=== PATIENT | male | born 1940 | race African-American/Black ===

== ENCOUNTER 2019-09-10 07:56 | Emergency (ER) | payer OTHER ==
[~2019-09-10] VITALS: Ht 162.6 cm; Wt 64.9 kg
[2019-09-10 08:09] VITALS: BP_SYST 153
[2019-09-10] MEDS ORDERED: ONDANSETRON HCL 4 MG/2 ML VIAL IVP ONE (08:30)
[2019-09-10] MEDS ORDERED: FAMOTIDINE PF 20 MG/2 ML VIAL IVP ONE (08:30)
[2019-09-10] MEDS ORDERED: MORPHINE 4 MG/ML INJ. SYRINGE IVP ONE (08:30)
--- NOTE | 2019-09-10 08:30 | NUR ---
Placed in room 2 . Placed on water superintendent, blood pressure machine and pulse oximeter. To gown for exam. Side rails up. Assumed care.
[2019-09-10 08:32] LABS: BILIRUBIN,URINE NEGATIVE (NEGATIVE); BLOOD, URINE NEGATIVE (NEGATIVE); CLARITY/URINE CLEAR (CLEAR); COLOR,URINE YELLOW (YELLOW); GLUCOSE,URINE 1+ (NEGATIVE); KETONES,URINE NEGATIVE (NEGATIVE); LEUKOCYTE ESTERASE ,URINE NEGATIVE (NEGATIVE); NITRITE, URINE NEGATIVE (NEGATIVE); PH,URINE 7.5 (5.0-8.0); PROTEIN URINE NEGATIVE (NEGATIVE); UROBILINOGEN,URINE 0.2 (0.2-1.0)
--- NOTE | 2019-09-10 08:35 | NUR ---
Patient arrived AAOx4, and ambulatory with steady gait. Patient c/c of lower abdominal pain and flank pain since last night. Patient reports that his pain is dull and achy, 9/10 rated, nausea with no diarrhea or vomiting. Patient states nothing alleviates his pain or makes it worse. Patient states history of constipation, but has increased his water intake to help "flush things through." Patietn states no pain with urination or blood. Patient states no history of kidney stones. Will continue to follow up and monitor.
--- NOTE | 2019-09-10 08:55 | NUR ---
# 20 gauge angiocath placed to LAC. Use of asceptic technique. Opsite placed over site. Blood return noted. Blood for lab drawn from site. Flushed with 10 cc of normal saline. No evidence of infiltration noted. Patient tolerated well.
[2019-09-10 09:15] LABS: BASOPHILS % (AUTO) 0.3 % (0.0-2.0); EOSINOPHILS # (AUTO) 0.1 K/uL (0.0-0.4); EOSINOPHILS % (AUTO) 0.8 % (0.0-4.0); HEMATOCRIT 37.9 % (36-54); HEMOGLOBIN 12.9 g/dL (14.0-18.0); LYMPHOCYTES % (AUTO) 12.9 % (20.5-51.5); MEAN CORPUSCULAR HEMOGLOBIN 33 pg (27-31); MEAN CORPUSCULAR HGB CONC 34 % (32-36); MEAN CORPUSCULAR VOLUME 97 fL (79.0-98.0); MONOCYTES # (AUTO) 0.4 K/uL (0.0-1.0); MONOCYTES % (AUTO) 5.4 % (1.7-9.3); NEUTROPHILS # (AUTO) 6.2 K/uL (1.8-7.7); NEUTROPHILS % (AUTO) 80.6 % (40.0-70.0); PLATELET COUNT (AUTO) 207 K/uL (130-430); RED BLOOD CELL COUNT(AUTO) 3.92 MIL/uL (4.2-6.2); RED CELL DISTRIBUTION WIDTH 13.6 % (9.0-15.0); WHITE BLOOD COUNT (AUTO) 7.7 K/uL (4.8-10.8)
[2019-09-10 09:47] LABS: ANION GAP 6 (5-15); CALCIUM 9.3 mg/dL (8.4-11.0); CHLORIDE 105 mmol/L (98-107); CREATININE 0.87 mg/dL (0.55-1.30); GLUCOSE 173 mg/dL (70-99); POTASSIUM 3.9 mmol/L (3.5-5.1); SODIUM SERUM 139 mmol/L (136-145); UREA NITROGEN, BLOOD 9 mg/dL (8-21)
[2019-09-10 09:52] LABS: ALANINE AMINOTRANSFERASE 22 U/L (12-78); ALBUMIN 3.7 g/dL (3.4-4.8); ASPARTATE AMINOTRANSFERASE 20 U/L (10-37); TOTAL BILIRUBIN 0.6 mg/dL (0.0-1.0)
[2019-09-10] MEDS ORDERED: TAMSULOSIN HCL 0.4 MG CAP PO ONE (10:30)
--- NOTE | 2019-09-10 10:35 | NUR ---
# 16 FR Pearce catheter with use of sterile technique. Immediate return of 625 cc pale clear yellow urine noted. Bedside drainage bag placed below level of bladder. Urine sample collected and sent to lab. Pt tolerated procedure well. Placed related to urinary retention and bladder distention. Patient notes immediate relief of pain.
--- NOTE | 2019-09-10 13:18 | NUR ---
Patient concerned regarding blood presence in urine. Dr. Solano at bedside to discuss. Okay to hang additional 1L of normal saline and change leg bag to see clarity.
[2019-09-10 13:37] VITALS: BP_SYST 141
--- NOTE | 2019-09-10 13:37 | NUR ---
Patient given written and verbal discharge instructions and verbalizes understanding. ER MD discussed with patient the results and treatment provided. Patient in stable condition. ID arm band removed. IV catheter removed intact and dressing applied, no active bleeding. Rx of Flomax given. Patient educated on pain management and to follow up with PMD. Pain Scale 0/10. Opportunity for questions provided and answered. Medication side effect fact sheet provided. Patient receieved additional 1L of normal saline as ordered by Dr. Solano. Patient educated on emptying of leg bag for catheter and importance of cleaning area with soap and water, maintaining hygiene for reduced risk of infection. Patient from [place] and encouraged to follow up with PMD and ask for referrel to urologist.
== END 2019-09-10 13:37 | disposition home or self-care (01) ==
LOC: SED 07:56
DX: N32.89 Other specified disorders of bladder (principal); N13.30 Unspecified hydronephrosis; R33.9 Retention of urine, unspecified; E11.9 Type 2 diabetes mellitus without complications; I10 Essential (primary) hypertension; E78.00 Pure hypercholesterolemia, unspecified; Z46.6 Encounter for fitting and adjustment of urinary device
CPT/HCPCS: 36415; 80053; 81003; 85025; 96374; 96375; 99284

== ENCOUNTER 2019-09-12 11:26 | Emergency (ER) | payer OTHER ==
[~2019-09-12] VITALS: Ht 167.6 cm; Wt 68.0 kg
[2019-09-12 11:49] VITALS: BP_SYST 150
--- NOTE | 2019-09-12 11:54 | NUR ---
Patient triaged and placed in waiting room. VSS and patient appears in no acute distress at this time. Accompanied by self, awaiting available bed, and MD notified of need for MSE.
--- NOTE | 2019-09-12 12:15 | NUR ---
Patient to ER bed 02 to gown for evaluation. Side rails up.
--- NOTE | 2019-09-12 12:21 | NUR ---
Patient is awake, alert, and oriented x4. Patient reports he had a chen catheter inserted on Suday, bloody urine was noted in bag and he reports being told that it would clear up. Patient complains that it has not cleared up. He presents with bloody urine, chen catheter is intact. Patient is dull lower abdominal pain 3/10 made worse on movement.
--- NOTE | 2019-09-12 12:30 | NUR ---
ER Dr. Cheney at bedside examining patient.
--- NOTE | 2019-09-12 12:48 | NUR ---
Pt returned from radiology in stable condition
[2019-09-12 12:50] LABS: BASOPHILS % (AUTO) 0.5 % (0.0-2.0); EOSINOPHILS # (AUTO) 0.1 K/uL (0.0-0.4); EOSINOPHILS % (AUTO) 1.8 % (0.0-4.0); HEMATOCRIT 37.6 % (36-54); HEMOGLOBIN 12.8 g/dL (14.0-18.0); MEAN CORPUSCULAR HEMOGLOBIN 33 pg (27-31); MEAN CORPUSCULAR HGB CONC 34 % (32-36); MEAN CORPUSCULAR VOLUME 97 fL (79.0-98.0); MONOCYTES # (AUTO) 0.6 K/uL (0.0-1.0); NEUTROPHILS # (AUTO) 3.8 K/uL (1.8-7.7); NEUTROPHILS % (AUTO) 58.7 % (40.0-70.0); PLATELET COUNT (AUTO) 217 K/uL (130-430); RED BLOOD CELL COUNT(AUTO) 3.87 MIL/uL (4.2-6.2); RED CELL DISTRIBUTION WIDTH 13.6 % (9.0-15.0); WHITE BLOOD COUNT (AUTO) 6.6 K/uL (4.8-10.8)
[2019-09-12 13:02] LABS: ANION GAP 4 (5-15); CHLORIDE 103 mmol/L (98-107); CREATININE 0.96 mg/dL (0.55-1.30); GLUCOSE 192 mg/dL (70-99); SODIUM SERUM 136 mmol/L (136-145); UREA NITROGEN, BLOOD 12 mg/dL (8-21)
[2019-09-12 13:07] LABS: ALANINE AMINOTRANSFERASE 26 U/L (12-78); ALBUMIN 3.5 g/dL (3.4-4.8); ASPARTATE AMINOTRANSFERASE 10 U/L (10-37); TOTAL BILIRUBIN 0.4 mg/dL (0.0-1.0)
--- NOTE | 2019-09-12 13:27 | NUR ---
Pearce catheter flushed with 30cc of NS x4. Immediate return of 30cc of pink urine x4. No clots noted.
[2019-09-12] MEDS ORDERED: PHENAZOPYRIDINE HCL 100 MG TABLET PO ONE (14:45)
[2019-09-12] MEDS ORDERED: SULFAMETHOXAZOLE/TRIMETHOPR DS 1 TABLET PO ONE (14:45)
--- NOTE | 2019-09-12 14:55 | NUR ---
Dr. Cheney in to talk to patient.
[2019-09-12 14:57] VITALS: BP_SYST 144
--- NOTE | 2019-09-12 14:57 | NUR ---
Patient given written and verbal discharge instructions and verbalizes understanding. ER MD discussed with patient the results and treatment provided. Patient in stable condition. ID arm band removed. Rx of bactrim DS, pyridium given. Patient educated on pain management and to follow up with PMD. Pain Scale 0/10. Opportunity for questions provided and answered. Medication side effect fact sheet provided.
== END 2019-09-12 14:57 | disposition home or self-care (01) ==
LOC: SED 11:26
DX: N39.0 Urinary tract infection, site not specified (principal); R31.9 Hematuria, unspecified; I10 Essential (primary) hypertension; E11.9 Type 2 diabetes mellitus without complications; E78.00 Pure hypercholesterolemia, unspecified
CPT/HCPCS: 36415; 74018; 80053; 81002; 85025; 99284